=== PATIENT | male | born 1980 | race Caucasian/White ===

== ENCOUNTER 2021-08-19 23:33 | Emergency (ER) | payer MEDICAID ==
[2021-08-19] MEDS ORDERED: Sodium Chloride 0.9% 2.5 ML Syringe FLUSH PRN (23:43)
[2021-08-19] MEDS ORDERED: Sodium Chloride 0.9% 10 ML Syringe FLUSH PRN (23:43)
[2021-08-20 00:18] LABS: CARBON DIOXIDE,CO2 24.5 mmol/L (21.0-32.0); POTASSIUM,K 3.5 mmol/L (3.5-5.1)
[2021-08-20] MEDS ORDERED: Iopamidol 755 MG/ML 500 ML Multipack Bottle IVPUSH ONE (01:00)
[2021-08-20] MEDS ORDERED: Apixaban 5 MG Tab PO ONE (02:22)
== END 2021-08-20 02:38 | disposition home or self-care (01) ==
LOC: MW.ED 23:33
DX: R55 Syncope and collapse (principal)
CPT/HCPCS: 36415; 71275; 80053; 83880; 84484; 85025; 93005; 99285; A9270; J3490; Q9967; 93010; 99284